=== PATIENT | female | born 1985 | race Caucasian/White ===

== ENCOUNTER 2023-10-01 17:44 | Emergency (ER) | payer BC ==
[~2023-10-01] VITALS: Ht 167.6 cm; Wt 112.9 kg
[2023-10-01 19:46] VITALS: BP 136/76; TEMP 98.4
[2023-10-01] MEDS ORDERED: CYCLOBENZAPRINE 10 MG TABLET ONE (20:35)
[2023-10-01] MEDS ORDERED: IBUPROFEN 400 MG TABLET ONE (20:36)
[2023-10-01] MEDS: CYCLOBENZAPRINE 10 MG TABLET PO ONE (20:39)
[2023-10-01] MEDS: IBUPROFEN 400 MG TABLET PO ONE (20:39)
[2023-10-01] MEDS ORDERED: IBUP-1955 PO (21:00)
[2023-10-01] MEDS ORDERED: CYCL5TAB PO (21:00)
[2023-10-01] MEDS ORDERED: ACET-2605 PO (21:00)
[2023-10-01 21:08] VITALS: O2SAT 97
== END 2023-10-01 21:09 | disposition home or self-care (01) ==
LOC: ER 17:50
DX: R51.9 Headache, unspecified (principal); M54.2 Cervicalgia; M54.6 Pain in thoracic spine; I10 Essential (primary) hypertension; V43.52XA Car driver injured in collision with other type car in traffic accident, initial encounter; Y93.89 Activity, other specified; Y92.89 Other specified places as the place of occurrence of the external cause; Y99.8 Other external cause status